=== PATIENT | female | born 1995 | race African-American/Black ===

== ENCOUNTER 2016-12-03 10:34 | Emergency (ER) | payer BC ==
[~2016-12-03] VITALS: Ht 175.3 cm; Wt 57.0 kg
[2016-12-03 10:36] VITALS: BP 131/65; PULSE 114; RESP 20; TEMP 99.5; O2SAT 100
[2016-12-03 10:48] VITALS: BP 123/72; PULSE 97; RESP 16; TEMP 99.3; O2SAT 100
[2016-12-03] MEDS ORDERED: SODIUM CHLOR 0.9% 1000 ML INJ 1,000 ML IV SCH (11:12)
[2016-12-03] MEDS ORDERED: ONDANSETRON HCL 4 MG/2 ML VIAL IVP ONE (11:15)
[2016-12-03] MEDS ORDERED: MORPHINE SULFATE 4 MG/ML INJ IV PUSH ONE (11:15)
[2016-12-03] MEDS ORDERED: SODIUM CHLORIDE 0.9% FLUSH 10 ML FLUSH IV FLUSH PRN (11:15)
--- NOTE | 2016-12-03 11:25 | PD ---
HPI Chief Complaint: Abdominal Pain Time Seen by Provider: 11:15 Travel History International Travel<30 days: No Contact w/Intl Traveler<30days: No Traveled to known affect area: No History of Present Illness HPI 21-year-old female presents to the ED for evaluation of 1 week history of right lower quadrant abdominal pain, subjective fevers, no appetite, nausea, watery diarrhea. Onset gradual. 10, described as cramping. Patient denies vomiting , dysuria, back pain. LMP 11/25. States that she had negative urine test at home. She went to urgent care yesterday and was referred to the ED. PFSH Past Medical History ?: Not LMP: 11/25/16 Social History Alcohol Use: No Tobacco Use: No Substance Use: No Allergies-Medications (Allergen,Severity, Reaction): Coded Allergies: No Known Allergies (Unverified , 12/03/16) Reported Meds & Prescriptions Reported Meds & Active Scripts Active Cipro (Ciprofloxacin HCl) 250 Mg Tab 250 Mg PO BID 3 Days Ibuprofen 800 Mg Tab 800 Mg PO Q8H PRN Review of Systems Except as stated in HPI: all other systems reviewed are Neg Physical Exam Narrative GENERAL: Well-nourished, well-developed thin black female in no acute distress. SKIN: Focused skin assessment warm/dry. HEAD: Normocephalic. EYES: No scleral icterus. No injection or drainage. NECK: Supple, trachea midline. No JVD or lymphadenopathy. CARDIOVASCULAR: Regular rate and rhythm without murmurs, gallops, or rubs. RESPIRATORY: Breath sounds clear and equal bilaterally. No accessory muscle use. GASTROINTESTINAL: Abdomen soft, nondistended. Tender to palpation in the right upper quadrant, right lower quadrant and suprapubic region. Active bowel sounds. No hepatosplenomegaly. No palpable masses. Some voluntary guarding. MUSCULOSKELETAL: No cyanosis, or edema. BACK: Nontender without obvious deformity. No CVA tenderness. Data Data Last Documented VS Vital Signs Date Time Temp Pulse Resp B/P Pulse Ox O2 Delivery O2 Flow Rate FiO2 12/03/16 16:09 66 16 109/64 99 12/03/16 13:56 98.4 12/03/16 12:16 Room Air Orders Complete Blood Count With Diff (12/03/16 11:00) Comprehensive Metabolic Panel (12/03/16 11:00) Lipase (12/03/16 11:00) Iv Access Insert/Monitor (12/03/16 11:00) Oximetry (12/03/16 11:00) Ed Urine Pregnancytest Poc (12/03/16 11:00) Urinalysis - C+S If Indicated (12/03/16 11:12) Ct Abd/Pel W Iv Contrast(Rout) (12/03/16 11:12) Morphine Inj (Morphine Inj) (12/03/16 11:15) Ondansetron Inj (Zofran Inj) (12/03/16 11:15) Sodium Chlor 0.9% 1000 Ml Inj (Ns 1000 M (12/03/16 11:12) Sodium Chloride 0.9% Flush (Ns Flush) (12/03/16 11:15) Oral Contrast - Adult (12/03/16 11:28) Diatrizoate Liq ( Gastroview Liq) (12/03/16 11:36) Urine Culture (12/03/16 11:30) Iohexol 350 Inj (Omnipaque 350 Inj) (12/03/16 13:27) Femur (Ap & Lat/2vws) (12/03/16 14:28) Labs Laboratory Tests Test 12/03/16 12/03/16 11:15 11:30 White Blood Count 8.7 TH/MM3 Red Blood Count 3.81 MIL/MM3 Hemoglobin 10.9 GM/DL Hematocrit 32.0 % Mean Corpuscular Volume 84.1 FL Mean Corpuscular Hemoglobin 28.5 PG Mean Corpuscular Hemoglobin 33.9 % Concent Red Cell Distribution Width 13.4 % Platelet Count 331 TH/MM3 Mean Platelet Volume 8.2 FL Neutrophils (%) (Auto) 68.0 % Lymphocytes (%) (Auto) 18.1 % Monocytes (%) (Auto) 12.8 % Eosinophils (%) (Auto) 0.7 % Basophils (%) (Auto) 0.4 % Neutrophils # (Auto) 5.9 TH/MM3 Lymphocytes # (Auto) 1.6 TH/MM3 Monocytes # (Auto) 1.1 TH/MM3 Eosinophils # (Auto) 0.1 TH/MM3 Basophils # (Auto) 0.0 TH/MM3 CBC Comment DIFF FINAL Differential Comment Sodium Level 135 MEQ/L Potassium Level 3.7 MEQ/L Chloride Level 103 MEQ/L Carbon Dioxide Level 24.5 MEQ/L Anion Gap 8 MEQ/L Blood Urea Nitrogen 11 MG/DL Creatinine 0.77 MG/DL Estimat Glomerular Filtration 96 ML/MIN Rate Random Glucose 87 MG/DL Calcium Level 8.9 MG/DL Total Bilirubin 0.3 MG/DL Aspartate Amino Transf 16 U/L (AST/SGOT) Alanine Aminotransferase 17 U/L (ALT/SGPT) Alkaline Phosphatase 77 U/L Total Protein 9.3 GM/DL Albumin 3.1 GM/DL Lipase 135 U/L Urine Color YELLOW Urine Turbidity HAZY Urine pH 6.0 Urine Specific [place] 1.027 Urine Protein 30 mg/dL Urine Glucose (UA) NEG mg/dL Urine Ketones NEG mg/dL Urine Occult Blood TRACE Urine Nitrite NEG Urine Bilirubin NEG Urine Urobilinogen 2.0 MG/DL Urine Leukocyte Esterase SMALL Urine RBC 2 /hpf Urine WBC 13 /hpf Urine Squamous Epithelial 5 /hpf Cells Urine Mucus MANY /lpf Microscopic Urinalysis Comment CULTURE INDICATED MDM Medical Decision Making Medical Screen Exam Complete: Yes Emergency Medical Condition: Yes Differential Diagnosis ovarian cyst versus appendicitis versus cholecystitis versus cystitis versus pyelonephritis versus other Narrative Course 21-year-old female presents to the ED for evaluation of 1 week history of 9/10, crampy, RLQ abdominal pain, subjective fevers, anorexia, nausea, watery diarrhea. Onset gradual. Patient denies vomiting, dysuria, back pain. LMP 5/ 30. States that she had negative urine test at home. Temperature 99.5, pulse 114, BP 131/65 on presentation. Physical exam reveals a thin back female in no acute distress. There is mild tenderness in the RUQ but the majority of her pain is in the RLQ and extends into the suprapubic region. No CVA tenderness. Patient was administered 4 mg Zofran, 4 mg morphine, 1 L normal saline IV. CBC: WBC 8.7, hemoglobin 10.9 CMP: Unremarkable Lipase: 135 UA: Hazy, trace occult blood, small leukocyte esterase, 13 WBCs, culture pending. Urine test: Negative CT abdomen/pelvis: No acute intra-abdominal findings. Incomplete visualization of possible lytic lesion in the right femur noted. XR right femur: Lytic lesion of the proximal femoral metaphysis. 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 I discussed the results of the workup with the patient. Prescribed Cipro 250 twice a day x 3 days, 800mg ibuprofen when necessary. The patient was provided with a copy of the radiology report. She is instructed to take all medication as prescribed, even if her symptoms resolve, follow up with the orthopedist for further evaluation. She indicated understanding of the instructions and is agreeable to the care plan. The patient is stable and discharged home. Diagnosis Primary Impression: RLQ abdominal tenderness Qualified Code: R10.813 - Right lower quadrant abdominal tenderness without rebound tenderness Additional Impressions: Urinary tract infection Qualified Code: N39.0 - Urinary tract infection without hematuria, site unspecified Lytic bone lesion of right femur Referrals: Roman Small MD Patient Instructions: General Instructions, Urinary Tract Infection in Women ( ED) Additional Instructions: Rest, hydrate. Take antibiotics as prescribed, even if symptoms resolve. Ibuprofen as prescribed,as needed for pain. Follow-up with the orthopedist regarding the femoral x-ray findings today. Return to the ED for worsening symptoms or any urgent or emergent medical condition. Med/Other Pt SpecificInfo: Prescription(s) given Scripts Ciprofloxacin (Cipro)250 Mg [id number] Mg PO BID 3 Days Ref 0 Prov:Ade Allan MD 12/03/16 Ibuprofen 800 Mg [id number] Mg PO Q8H PRN (Pain/Inflammation) #15 TAB Ref 0 Prov:Ade Allan MD 12/03/16 Disposition: 01 DISCHARGE HOME Condition: Stable Maryan Irving Dec 03, 2016 11:25
[2016-12-03] MEDS ORDERED: DIATRIZOATE MEGLUM/DIATRIZOATE SOD 9 ML CUP ONE (11:36)
[2016-12-03 11:48] LABS: ANION GAP 8 MEQ/L (5-15); AST (GOT) 16 U/L (16-38); AUTOMATED NEUTROPHIL # 5.9 TH/MM3 (1.8-7.7); BASOPHIL % 0.4 % (0.0-2.0); BICARBONATE 24.5 MEQ/L (21.0-32.0); BLOOD UREA NITROGEN 11 MG/DL (7-18); CHLORIDE 103 MEQ/L (98-107); EOSINOPHIL # 0.1 TH/MM3 (0-0.4); EOSINOPHIL % 0.7 % (0.0-4.0); GLOMERULAR FILTRATION RATE 96 ML/MIN (>89); HEMO FLAGS DIFF FINAL; LYMPH % 18.1 % (9.0-44.0); LYMPHOCYTE # 1.6 TH/MM3 (1.0-4.8); MEAN CELL VOLUME 84.1 FL (80.0-100.0); MEAN CORPUSCULAR HEMOGLOBIN 28.5 PG (27.0-34.0); MEAN CORPUSCULAR HGB CONC 33.9 % (32.0-36.0); MONO % 12.8 % (0.0-8.0); PLATELET COUNT 331 TH/MM3 (150-450); POTASSIUM 3.7 MEQ/L (3.5-5.1); RED BLOOD COUNT 3.81 MIL/MM3 (4.00-5.30); RED CELL DISTRIBUTION WIDTH 13.4 % (11.6-17.2); SODIUM (NA) 135 MEQ/L (136-145); WHITE BLOOD COUNT 8.7 TH/MM3 (4.0-11.0)
[2016-12-03 11:49] LABS: ALT (GPT) 17 U/L (9-42)
[2016-12-03 11:51] LABS: ALKALINE PHOSPHATASE 77 U/L (45-117); TOTAL BILIRUBIN ADULT 0.3 MG/DL (0.2-1.0)
[2016-12-03 12:10] LABS: BLOOD, URINE TRACE (NEG); COMMENT (UR) CULTURE INDICATED; CULTURE IF INDICATED CULTURE INDICATED; GLUCOSE,URINE NEG (NEG); KETONE, URINE NEG (NEG); MUCUS URINE MANY /lpf (OCC); NITRITE,URINE NEG (NEG); SQUAMOUS EPITHELIAL CELL URINE 5 /hpf (0-5); URINE COLOR YELLOW (YELLW/STRAW)
[2016-12-03 12:16] VITALS: O2SAT 100
[2016-12-03] MEDS ORDERED: IOHEXOL 350 MG/ML 10 ML VIAL (for RAD DIAG) IV ONE (13:27)
[2016-12-03 13:56] VITALS: BP 110/60; TEMP 98.4
--- NOTE | 2016-12-03 14:21 | RADRPT ---
EXAM DATE/TIME: 12/03/2016 13:15 [facility] COMPARISON: No previous studies available for comparison. INDICATIONS : Right lower quadrant pain, for over a week. IV CONTRAST: 85 cc Omnipaque 350 (iohexol) IV ORAL CONTRAST: Prescribed oral contrast ingested. RADIATION DOSE: 4.57 CTDIvol (mGy) MEDICAL HISTORY : None SURGICAL HISTORY : None. ENCOUNTER: Initial ACUITY: 1 week PAIN SCALE: 6/10 LOCATION: Right lower quadrant TECHNIQUE: Volumetric scanning of the abdomen and pelvis was performed. Using automated exposure control and adjustment of the mA and/or kV according to patient size, radiation dose was kept as low as reasonably achievable to obtain optimal diagnostic quality images. FINDINGS: LOWER LUNGS: The visualized lower lungs are clear. LIVER: Homogeneous density without lesion. There is no dilation of the biliary tree. No calcifi ed gallstones. SPLEEN: Normal size without lesion. PANCREAS: Within normal limits. KIDNEYS: Normal in size and shape. There is no mass, stone or hydronephrosis. ADRENAL GLANDS: Within normal limits. VASCULAR: There is no aortic aneurysm. BOWEL/MESENTERY: Appendix is visualized and normal in appearance. The stomach, small bowel, and c olon demonstrate no acute abnormality. There is no free intraperitoneal air or fluid. ABDOMINAL WALL: Within normal limits. RETROPERITONEUM: There is no lymphadenopathy. BLADDER: No wall thickening or mass. REPRODUCTIVE: Within normal limits. INGUINAL: There is no lymphadenopathy or hernia. MUSCULOSKELETAL: Incidental note is made of a lytic lesion in the right femoral diaphysis extendi ng from the intertrochanteric region caudally. This lesion is incompletely imaged. There is a narrow zone of sclerosis without evidence for cortical breakthrough or soft tissue mass in the visualized po rtions. CONCLUSION: 1. Normal appendix. 2. No findings to explain patient's abdominal pain. 3. Incidental note of a lytic lesion in the right femoral diaphysis extending from the intertrochante fátima region caudally. This lesion is incompletely imaged but demonstrates low biologic activity in its visualized portions. Query prior intramedullary clayton placement? Recommend formal radiographs of the r ight femur for further evaluation. Valentin Gonzalez MD on December 03, 2016 at 13:51 Board Certified Radiologist. This report was verified electronically.
--- NOTE | 2016-12-03 15:49 | RADRPT ---
EXAM DATE/TIME: 12/03/2016 15:14 [facility] COMPARISON: No previous studies available for comparison. INDICATIONS : Right lower abdomen pain. MEDICAL HISTORY : None. SURGICAL HISTORY : None. ENCOUNTER: Initial ACUITY: 1 day PAIN SCORE: 5/10 LOCATION: Right femur FINDINGS: 4 views the right femur reveal a lytic lesion involving the proximal femoral metaphysis. This has a t hin sclerotic margin and a narrow zone of transition. No endosteal scalloping or cortical destruction . No periosteal reaction. No fracture or dislocation. The remaining femur is unremarkable. Soft tissu es are unremarkable. Contrast is seen involving the colon and urinary bladder. CONCLUSION: 1. No acute abnormality. 2. Lytic lesion involving the proximal femoral metaphysis. Differential diagnostic considerations inc lude solitary bone cyst, eosinophilic granuloma, and fibrous dysplasia. Dave Turcios Jr., MD on December 03, 2016 at 15:39 Board Certified Radiologist. This report was verified electronically.
[2016-12-03] MEDS ORDERED: CIPR250T52 PO (15:56)
[2016-12-03] MEDS ORDERED: IBUP800T23 PO (15:56)
[2016-12-03 16:09] VITALS: BP 109/64
== END 2016-12-03 16:41 | disposition home or self-care (01) ==
LOC: NEPC 10:34
DX: R10.813 Right lower quadrant abdominal tenderness (principal); N39.0 Urinary tract infection, site not specified
CPT/HCPCS: 73552; 74177; 80053; 81001; 83690; 84703; 85025; 87086; 96361; 96374; 96375; 99285; J2270; J2405; J7030; Q9963; Q9967